=== PATIENT | female | born 1990 | race Caucasian/White ===

== ENCOUNTER 2019-01-13 09:59 | Emergency (ER) | payer OTHER, SELFPAY ==
--- NOTE | 2019-01-13 10:36 | ER ---
Nurse's Notes [facility] Name: Francia Leon Age: 28 yrs Sex: Female : 1990 Arrival Date: 01/13/2019 Time: 10:02 Bed 9 Private MD: Diagnosis: Torticollis Presentation: 01/13 10:11 Presenting complaint: Patient states: right neck/shoulder cramping started at 0000. sv Denies recent injury or fall. Transition of care: patient was not received from another setting of care. Onset of symptoms was January 13, 2019. Initial Sepsis Screen: Does the patient meet any 2 criteria? No. Patient's initial sepsis screen is negative. Does the patient have a suspected source of infection? No. Patient's initial sepsis screen is negative. Care prior to arrival: Medication(s) given: Motrin, 800 mg, taken at 0700. 10:11 Method Of Arrival: Ambulatory sv 10:11 Acuity: ANNABELLE 4 sv 10:11 Risk Assessment: Do you want to hurt yourself or someone else? Patient reports no sv desire to harm self or others. Triage Assessment: 10:11 General: Appears in no apparent distress. uncomfortable, well groomed, well developed, sv Behavior is calm, cooperative, appropriate for age. Pain: Complains of pain in right posterior aspect of neck, right lateral aspect of neck and back of neck Pain currently is 7 out of 10 on a pain scale. Neuro: Level of Consciousness is awake, alert, obeys commands, Oriented to person, place, time, situation, Moves all extremities. Full function Gait is steady. Respiratory: Respiratory effort is even, unlabored, Respiratory pattern is regular, symmetrical. Derm: Skin is pink, warm \T\ dry. Historical: - Allergies: 10:12 No Known Allergies; sv - PMHx: 10:12 None; sv - PSHx: 10:12 None; sv - Immunization history:: Adult Immunizations up to date. - Social history:: Smoking status: Patient/guardian denies using tobacco. - Ebola Screening: : No symptoms or risks identified at this time. Screenin:32 Abuse screen: Denies threats or abuse. Denies injuries from another. Nutritional sv screening: No deficits noted. Tuberculosis screening: No symptoms or risk factors identified. Fall Risk None identified. Assessment: 10:42 Reassessment: Patient appears in no apparent distress at this time. No changes from sv previously documented assessment. Patient and/or family updated on plan of care and expected duration. Pain level reassessed. Patient is alert, oriented x 3, equal unlabored respirations, skin warm/dry/pink. Vital Signs: 10:12 BP 148 / 75; Pulse 77; Resp 16; Temp 98.2; Pulse Ox 99% ; Weight 99.79 kg; Height 5 ft. sv 6 in. (167.64 cm); Pain 7/10; 10:12 Body Mass Index 35.51 (99.79 kg, 167.64 cm) sv ED Course: 10:02 Patient arrived in ED. as 10:12 Triage completed. sv 10:12 Arm band placed on. sv 10:14 Emily Moura FNP is PHCP. nh 10:14 Cricket Ibarra MD is Attending Physician. nh 10:32 Patient has correct armband on for positive identification. Call light in reach. Door sv closed. Head of bed elevated. 10:42 Princess Renteria, JV is Primary Nurse. sv 10:42 No provider procedures requiring assistance completed. Patient did not have IV access sv during this emergency room visit. Administered Medications: No medications were administered Outcome: 10:36 Discharge ordered by . nh 10:42 Discharged to home ambulatory. sv 10:42 Condition: stable 10:42 Discharge instructions given to patient, Instructed on discharge instructions, follow up and referral plans. medication usage, Demonstrated understanding of instructions, follow-up care, medications, Prescriptions given X 1. 10:46 Patient left the ED. ss Signatures: Princess Renteria RN RN Emily Moura FNP FARM [employer]ENT [place] Cyndee Medley Shelby, RN RN ss
--- NOTE | 2019-01-13 10:36 | EDPHYS ---
Physician Documentation [facility] Name: Francia Leon Age: 28 yrs Sex: Female : 1990 Arrival Date: 01/13/2019 Time: 10:02 Bed 9 Private MD: ED Physician Cricket Ibarra HPI: 01/13 10:32 This 28 yrs old Female presents to ER via Ambulatory with complaints of Neck nh and Upper Back Pain. 10:32 The patient or guardian complains of pain, that is acute, spasm, stiffness, tightness. nh The symptoms are located on the right sternocleidomastoid and left sternocleidomastoid. Onset: The symptoms/episode began/occurred acutely, this morning. Associated signs and symptoms: The patient has no apparent associated signs or symptoms. Modifying factors: The symptoms are alleviated by nothing. the symptoms are aggravated by movement. Severity of symptoms: At their worst the symptoms were moderate, just prior to arrival, in the emergency department the symptoms are unchanged. The patient has experienced a previous episode, last year, and the symptoms today are exactly the same. Historical: - Allergies: 10:12 No Known Allergies; sv - PMHx: 10:12 None; sv - PSHx: 10:12 None; sv - Immunization history:: Adult Immunizations up to date. - Social history:: Smoking status: Patient/guardian denies using tobacco. - Ebola Screening: : No symptoms or risks identified at this time. ROS: 10:32 Constitutional: Negative for fever, chills, and weight loss, Eyes: Negative for injury, nh pain, redness, and discharge, ENT: Negative for injury, pain, and discharge, Cardiovascular: Negative for chest pain, palpitations, and edema, Respiratory: Negative for shortness of breath, cough, wheezing, and pleuritic chest pain, Abdomen/GI: Negative for abdominal pain, nausea, vomiting, diarrhea, and constipation, Back: Negative for injury and pain, : Negative for injury, bleeding, discharge, and swelling, MS/Extremity: Negative for injury and deformity, Skin: Negative for injury, rash, and discoloration, Neuro: Negative for headache, weakness, numbness, tingling, and seizure, Psych: Negative for depression, anxiety, suicide ideation, homicidal ideation, and hallucinations, Allergy/Immunology: Negative for hives, rash, and allergies. 10:32 Neck: Positive for pain with movement. Exam: 10:32 Constitutional: This is a well developed, well nourished patient who is awake, alert, nh and in no acute distress. Head/Face: Normocephalic, atraumatic. Eyes: Pupils equal round and reactive to light, extra-ocular motions intact. Lids and lashes normal. Conjunctiva and sclera are non-icteric and not injected. Cornea within normal limits. Periorbital areas with no swelling, redness, or edema. ENT: Nares patent. No nasal discharge, no septal abnormalities noted. Tympanic membranes are normal and external auditory canals are clear. Oropharynx with no redness, swelling, or masses, exudates, or evidence of obstruction, uvula midline. Mucous membranes moist. Neck: Trachea midline, no thyromegaly or masses palpated, and no cervical lymphadenopathy. Supple, full range of motion without nuchal rigidity, or vertebral point tenderness. No Meningismus. Chest/axilla: Normal chest wall appearance and motion. Nontender with no deformity. No lesions are appreciated. Cardiovascular: Regular rate and rhythm with a normal S1 and S2. No gallops, murmurs, or rubs. Normal PMI, no JVD. No pulse deficits. Respiratory: Lungs have equal breath sounds bilaterally, clear to auscultation and percussion. No rales, rhonchi or wheezes noted. No increased work of breathing, no retractions or nasal flaring. Abdomen/GI: Soft, non-tender, with normal bowel sounds. No distension or tympany. No guarding or rebound. No evidence of tenderness throughout. Back: No spinal tenderness. No costovertebral tenderness. Full range of motion. Skin: Warm, dry with normal turgor. Normal color with no rashes, no lesions, and no evidence of cellulitis. 10:32 Musculoskeletal/extremity: Extremities: all appear grossly normal, with no appreciated pain with palpation, ROM: limited active range of motion due to pain, in the neck, limited passive range of motion due to pain, in the neck. Vital Signs: 10:12 BP 148 / 75; Pulse 77; Resp 16; Temp 98.2; Pulse Ox 99% ; Weight 99.79 kg; Height 5 ft. sv 6 in. (167.64 cm); Pain 7/10; 10:12 Body Mass Index 35.51 (99.79 kg, 167.64 cm) MDM: 10:14 Patient medically screened. hi 10:32 Data reviewed: vital signs, nurses notes, and as a result, I will discharge patient. hi Counseling: I had a detailed discussion with the patient and/or guardian regarding: the historical points, exam findings, and any diagnostic results supporting the discharge/admit diagnosis, the need for outpatient follow up, to return to the emergency department if symptoms worsen or persist or if there are any questions or concerns that arise at home. Administered Medications: No medications were administered Disposition: 01/13/19 10:36 Discharged to Home. Impression: Torticollis. - Condition is Stable. - Discharge Instructions: Acute Torticollis, Adult. - Prescriptions for Robaxin 500 mg Oral Tablet - take 2 tablet by ORAL route every 6 hours As needed; 40 tablet. - Medication Reconciliation Form, Thank You Letter, Antibiotic Education, Prescription Opioid Use form. - Follow up: Private Physician; When: 2 - 3 days; Reason: Recheck today's complaints. - Problem is new. - Symptoms are unchanged. Addendum: 01/15/2019 07:00 Co-signature as Attending Physician, Cricket Ibarra MD I agree with the assessment and [facility] plan of care. Signatures: Princess Renteria, RN RN Cricket Ibarra MD MD [facility] Emily Moura, MASTER GLAZIER MASTER GLAZIER hi Laura Briscoe RN RN ss Corrections: (The following items were deleted from the chart) 01/13 10:46 10:36 01/13/2019 10:36 Discharged to Home. Impression: Torticollis. Condition is ss Stable. Forms are Medication Reconciliation Form, Thank You Letter, Antibiotic Education, Prescription Opioid Use. Follow up: Private Physician; When: 2 - 3 days; Reason: Recheck today's complaints. Problem is new. Symptoms are unchanged. hi
== END 2019-01-13 10:46 | disposition home or self-care (01) ==
LOC: ER 09:59
DX: M43.6 Torticollis (principal)
CPT/HCPCS: 99282